=== PATIENT | male | born 1985 | race Caucasian/White ===

== ENCOUNTER 2019-08-11 22:29 | Emergency (ER) | payer OTHER ==
[~2019-08-11] VITALS: Ht 185.4 cm; Wt 90.7 kg
[~2019-08-11 22:29] MED LIST: BACTRIM DS 8001 TA1 PO; CLARITIN10 MG PO; CLINDAMYCIN HC300 MG PO; CLINDAMYCIN300 MG PO; EES400 MG PO; FLAGYL500 MG PO; KEFLEX500 MG PO; MOTRIN800 MG PO; NKHM; ONDANSETRON4 MG SL; TRAMADOL HCL50 MG PO; TYLENOL W/CODEI1 TA4 PO; ZANTAC150 MG PO; ZITHROMAX Z PA250 MG PO
[2019-08-12] MEDS ORDERED: CLINDAMYCIN HC300 MG PO (00:21)
== END 2019-08-12 00:47 | disposition home or self-care (01) ==
LOC: ED 22:29
DX: K02.9 Dental caries, unspecified (principal); F17.200 Nicotine dependence, unspecified, uncomplicated; Z88.0 Allergy status to penicillin

== ENCOUNTER 2024-09-08 22:02 | Emergency (ER) | payer OTHER ==
[~2024-09-08] VITALS: Ht 187.9 cm; Wt 86.2 kg
[2024-09-08 23:01] LABS: BASO # 0.1 10*3/uL (0.0-0.1); BASO % 0.6 % (0.0-1.0); EOS # 0.3 10*3/uL (0.0-0.4); HEMATOCRIT 40.2 % (42.0-52.0); MEAN CELL VOLUME 89.5 fl (80.0-94.0); MEAN CORPUSCULAR HGB 29.8 pg (27.0-31.0); MEAN CORPUSCULAR HGB CONC 33.3 g/dl (33.0-37.0); MEAN PLATELET VOLUME 8.3 fl (9.6-12.3); MONO % 9.9 % (3.0-9.0); NEUT % 69.4 % (47.0-73.0); PLATELET COUNT AUTOMATED 300 10*3/uL (130-400); RED BLOOD COUNT 4.49 10*6/uL (4.50-5.90); RED CELL DISTRI WIDTH 12.7 % (0-14.5)
[2024-09-08 23:26] LABS: BUN 10 mg/dl (9-23); CHLORIDE 100 mmol/L (98-107); POTASSIUM 3.6 mmol/L (3.4-5.1)
[2024-09-09] MEDS ORDERED: Bacitracin Zinc 14 GM TUBE T ONE (00:40)
== END 2024-09-09 00:50 ==
LOC: ED 22:02
PROVIDERS: Internal Medicine
DX: S30.850A Superficial foreign body of lower back and pelvis, initial encounter (principal); S00.93XA Contusion of unspecified part of head, initial encounter; D64.9 Anemia, unspecified; R51.9 Headache, unspecified; Z88.0 Allergy status to penicillin; W18.39XA Other fall on same level, initial encounter; Y93.89 Activity, other specified; Y92.89 Other specified places as the place of occurrence of the external cause; Y99.8 Other external cause status